=== PATIENT | female | born 1960 | race Caucasian/White ===

== ENCOUNTER 2017-03-14 13:38 | Day surgery (SDCO) | payer OTHER ==
[2017-03-14 14:17] LABS: BASOPHIL 0.7 % (0-2); EOSINOPHIL 3.5 % (0-5); HCT 38.8 % (37.0-47.0); LYMPHOCYTE 37.2 % (15-48); MCH 31.6 pg (25.0-31.0); MCHC 33.5 g/dL (32.0-36.0); MCV 94.4 fL (78.0-100.0); MONOCYTE 6.9 % (0-12); MPV 10.2 fL (6.0-9.5); NEUTROPHIL 51.7 % (41-80); PLT 259 K/uL (150-400); RBC 4.11 M/uL (4.20-5.40); RDW 13.4 % (11.5-14.0); WBC 6.8 K/uL (4.0-10.5)
[2017-03-14 14:26] LABS: INR 0.91 (0.9-1.2); PROTHROMBIN TIME 11.9 SECONDS (11.7-14.0); PTT 33.2 SECONDS (23.2-31.4)
[2017-03-14 14:36] LABS: ALBUMIN 4.1 g/dL (3.5-5.0); BILIRUBIN - TOTAL 0.2 mg/dL (0.1-1.0); GLOBULIN (CALCULATION) 1.9 g/dL (2.2-4.2)
[2017-03-14 14:39] LABS: MYOGLOBIN 21 ng/mL (26-65); PRO-BNP 42 pg/mL (0-125); TROPONIN T < 0.010 ng/mL
[2017-03-14 20:26] LABS: TROPONIN T < 0.010 ng/mL
[2017-03-15 02:01] LABS: HCT 35.8 % (37.0-47.0); HGB 11.8 g/dl (12.5-16.0); MCH 31.7 pg (25.0-31.0); MCV 96.2 fL (78.0-100.0); MPV 10.1 fL (6.0-9.5); RBC 3.72 M/uL (4.20-5.40); RDW 13.5 % (11.5-14.0); WBC 5.7 K/uL (4.0-10.5)
[2017-03-15 02:26] LABS: POTASSIUM 3.7 mmol/L (3.5-5.1)
[2017-03-15 02:27] LABS: PRO-BNP 35 pg/mL (0-125); TROPONIN T < 0.010 ng/mL
[2017-03-15] MEDS ORDERED: ASPIRIN CHEWABL81 MG PO (10:48)
[2017-03-15] MEDS ORDERED: PLAVIX75 MG PO (10:48)
[2017-03-15] MEDS ORDERED: TRAMADOL HCL50 MG PO (10:49)
== END 2017-03-15 10:50 | disposition home or self-care (01) ==
LOC: FER 13:38 → FTCU 17:00
PROVIDERS: Internal Medicine; ADMIT Internal Medicine
DX: I65.22 Occlusion and stenosis of left carotid artery (principal); E78.5 Hyperlipidemia, unspecified; I73.9 Peripheral vascular disease, unspecified; Z88.5 Allergy status to narcotic agent; Z92.21 Personal history of antineoplastic chemotherapy; Z92.3 Personal history of irradiation; Z85.831 Personal history of malignant neoplasm of soft tissue; Z87.891 Personal history of nicotine dependence; Z82.49 Family history of ischemic heart disease and other diseases of the circulatory system; Z83.3 Family history of diabetes mellitus; Z98.890 Other specified postprocedural states
CPT/HCPCS: 36415; 71010; 71275; 80048; 80053; 80061; 82550; 82553; 83735; 83874; 83880; 84145; 84484; 85025; 85379; 85610; 85651; 85730; 93005; 93880; 94010; A9500; G0378; J0153; J1170; J1885; Q9967